=== PATIENT | male | born 1965 | race Caucasian/White ===

== ENCOUNTER 2022-07-23 05:43 | Day surgery (SDC) | payer OTHER, MEDICAID, SELFPAY ==
[2022-07-23 06:15] VITALS: BP 124/79; PULSE 62; RESP 18; TEMP 36.5; O2SAT 94
[2022-07-23] MEDS: Lactated Ringers 1,000 ML 80 ML IV (06:58)
--- NOTE | 2022-07-23 07:01 | W.ANESPRE ---
General Info Date of Service Date Performed: 07/23/22 Height: 5 ft 9 in Weight: 104.2 kg Body Mass Index (BMI): 33.9 Surgical Procedure: Operation Date: 07/23/22 07:40 Proposed Procedure Side Surgeon p Toe Amputation Left Cassie Perez DPM Meds Allergies and Home Medications Allergies Allergy/AdvReac Type Severity Reaction Status Date / Time adhesive tape Allergy Intermediate Verified 07/22/22 08:39 Home Medication Medication Instructions Recorded albuterol sulfate 90 mcg/actuation 1 puff inhalation QID PRN 06/29/22 aerosol inhaler dulaglutide 3 mg/0.5 mL 3 mg subcut QWEEK 06/29/22 subcutaneous pen injector (Trulicity) duloxetine 60 mg capsule,delayed 120 mg PO DAILY 06/29/22 release fluticasone 250 mcg-salmeterol 50 1 inh inhalation BID 06/29/22 mcg/dose blistr powdr for inhalation (Advair Diskus) fluticasone propionate 50 1 spray intranasal DAILY 06/29/22 mcg/actuation nasal spray,suspension insulin glargine 100 unit/mL (3 80 unit subcut DAILY 06/29/22 mL) subcutaneous pen (Lantus Solostar U-100 Insulin) losartan 50 mg tablet 50 mg PO DAILY 06/29/22 metformin 1,000 mg tablet 1,000 mg PO BID 06/29/22 multivitamin 1 tab PO DAILY 06/29/22 polyethylene glycol 3350 17 17 g PO DAILY 06/29/22 gram/dose oral powder tadalafil 20 mg tablet 20 mg PO .every 3 days PRN 06/29/22 pregabalin 75 mg capsule (Lyrica) See Rx Instructions PO BID 07/13/22 levofloxacin 750 mg tablet 750 mg PO Q24H osteomyelitis #14 07/14/22 tabs Current Visit Medications: Current Medications Generic Name Dose Route Start Last Admin Trade Name Freq PRN Reason Stop Dose Admin Ringer's Solution 1,000 mls @ 80 mls/hr 07/23/22 06:00 07/23/22 06:58 IV 07/23/22 23:59 80 mls/hr INFUSION BEATA Administration Cefazolin Sodium/Dextrose 2 gm in 50 mls @ 100 mls/hr 07/23/22 06:00 Ancef Duplex IVPB 07/23/22 23:59 PREOP BEATA IV Miscellaneous Supplies 1 each 07/23/22 06:00 Iv Access IV 07/23/22 23:59 DIRECTED BEATA Sodium Chloride 0 ml 07/23/22 06:00 Normal Saline Flush 10 Ml Syr IV 07/23/22 23:59 PRN PRN Sodium Chloride 0 ml 07/23/22 06:00 Normal Saline 10 Ml Vial IJ 07/23/22 23:59 DIRECTED PRN Sterile Water 0 ml 07/23/22 06:00 Water,Injection,Sterile 10 Ml Vial IJ 07/23/22 23:59 DIRECTED PRN PFSH Active Problems Active Problems: Problem Status Onset Code Hypertension I10 Type 2 diabetes mellitus E11.9 Obesity E66.9 Hyperlipidemia E78.5 Diabetic foot ulcer with osteomyelitis E11.621, E11.69, L97.509, M86.9 Bilateral bunions M21.611, M21.612 Closed fracture of metatarsal bone of right foot S92.301A 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 Ingrown toenail L60.0 Asthma J45.909 Diabetic neuropathy E11.40 Osteoarthritis of right knee M17.11 Surgical History Surgical History History of bilateral knee replacement 04/2016 Tobacco Smoking/Tobacco Use Status: Never Alcohol Alcohol Intake: current Alcohol intake frequency: a few times a week Substance Use Substance use: Occasionally Substance use type: marijuana Details: Per Pt states, I use marjuana capsules to sleep Vital Signs and Lab Results Vital Signs Most Recent Vital Signs in EMR: Most Recent Vital Signs Temp Pulse Resp BP Pulse Ox 36.5 C 62 18 124/79 94 07/23/22 06:15 07/23/22 06:15 07/23/22 06:15 07/23/22 06:15 07/23/22 06:15 Point of Care Results Point of Care Results: Finger Stick Blood Glucose 97 07/23/22 06:57 Lab Results Blood Type / Crossmatch: No Data to Display Complete Blood Count: No Data to Display Complete Metabolic Panel: No Data to Display Liver Function Panel: No Data to Display Coagulation Panel: No Data to Display Cardiac Panel: No Data to Display Arterial Blood Gas: No Data to Display Venous Blood Gas: No Data to Display Pancreas Panel: No Data to Display Thyroid Panel: No Data to Display Infectious Disease: No Data to Display Blood Cultures: No Data to Display Toxicology Panel: No Data to Display Anesthesia Assessment and Plan Anesthesia History Personal History: No History of Anesthesia Complications Family History: No Family History of Anesthesia Complications Exercise Tolerance Exercise Tolerance: Metabolic Equivalents>4 Pertinent Negatives Pertinent Negatives: No Symptoms of GERD and No Major Cardiovascular Symptoms or Complaints Cardiac & Pulmonary Exam Cardiac Exam: Normal S1/S2 Heart Sounds Pulmonary Exam: Wheezing Present Implantable Cardiac Device Does patient have a Pacemaker or an ICD?: No Airway Exam Known Difficult Airway: No Mallampati Class: 1 Mouth Opening: Normal (> 3cm) Thyromental Distance: Greater than 3 cm Facial Hair: Full Berkowitz Neck Range of Motion: Full ROM Neck Circumference: Normal Teeth Condition: Normal Dentition ASA Classification ASA Score: ASA 3 Emergency Case?: No NPO Status NPO Status: NPO Clears >2 hours, Solids >8 hours Anesthesia Plan Resuscitation Status: Full Code Anesthesia Technique: General Anesthesia Airway Planned: Natural Airway Monitors Used: Standard Monitors Preoperative Comments:: Plan for preoperative albuterol
[2022-07-23 07:19] VITALS: BMI 33.9
[2022-07-23 07:33] LABS: Abs Immature Grans 0.02 10^3/uL (0.0-0.06); Absolute Eosinophil Count 0.76 10^3/uL (0.0-0.7); Absolute Lymphocyte Count 1.37 10^3/uL (1.2-3.4); Absolute Monocyte Count 0.97 10^3/uL (0.1-0.8); Absolute Neutrophil Count 6.77 10^3/uL (1.2-6.7); Eosinophils % 7.6; HCT 36.1 % (40.0-50.0); HGB 12.4 g/dL (13.5-17.5); Immature Grans % 0.2; Lymphocytes % 13.7; MCH 29.7 pg (27.0-33.0); MCHC 34.3 % (32.0-36.0); MCV 86 fL (80-95); MPV 9.4 fL (8.0-11.0); Monocytes % 9.7; Neutrophils % 67.8; Platelet Count 338 10^3/uL (130-400); RBC 4.18 10^6/uL (4.36-5.78); RDW 11.9 % (11.8-14.1); RDW-SD 37.9 fL; WBC 9.99 10^3/uL (4.4-10.8)
[2022-07-23] MEDS: ceFAZolin 2 GM/50 ML BAG IVPB (07:33)
[2022-07-23] MEDS: Bupivacaine 0.5% Pres-Free 30 ML VIAL (07:45)
--- NOTE | 2022-07-23 08:03 | BONE_PTH ---
PATIENT: Ronald Das LOC: [facility] U#:[id number] AGE/SX: 57/M ROOM: RE07/23/[address]: Cassie Perez : 1965 BED: DIS: 07/23/2022 SPEC #: [id number] RECD: 07/23/22 11:44 STATUS: MACIEL REKari #: [id number] RITESH: 07/23/22 08:[address]: Cassie Perez DEPT: Surgical Specimen RECD BY: Deedee Costa ENTERED: 07/23/22 11:46 SP TYPE: Bone OTHR DR: JODY PENA Tissues: 1 - BONE BX/CURRETTE NOT PATH FRACTURE Procedures: GROSS AND MICRO LEVEL 4 DECALCIFICATION Comments: [id number]
[2022-07-23 08:52] VITALS: BP 126/77; PULSE 65; RESP 18; TEMP 36.1; O2SAT 98
--- NOTE | 2022-07-23 09:15 | ROE_ITS ---
Date of service: 07/23/22 Time of Service: 07:00 Operative Note Operative Note DATE OF PROCEDURE: 07/23/22 PRE-OP DIAGNOSIS: L hallux ulcer with osteomyelitis POST-OP DIAGNOSIS: same PROCEDURE: L hallucal amputation with disarticulation at the IPJ and resection / biopsy of the distal aspect of the proximal phalanx SURGEON: Cassie Perez ANESTHESIA TYPE: Local By Surgeon and MAC Refer to Anesthesia Record ESTIMATED BLOOD LOSS: 50 PATHOLOGY: other (L hallux proximal phalanx, assess proximal margin for osteomyelitis) COMPLICATIONS: Other Patient was transported to: PACU Patient's condition: stable Indications: L hallux osteomyelitis Findings: L hallucal distal phalanx entirely necrotic and non viable. The distal aspect of the proximal phalanx was also with questionable viability so the decision was made to resect the distal 50% of the proximal phalanx, with pathology to assess proximal margin for osteomyelitis Procedure Description: The patient was brought into the operating room and placed on the operating table in the supine position. Following general anesthesia, a local anesthetic block was performed about the first ray using 20 cc of 0.5% marcaine plain. The foot was scrupped, prepped and draped, an ankle tourniquet was placed on the ankle. The tourniquet was not utilized throughout the surgery with hemostasis achieved using surgical technique / bovie cauterization. Attention was directed to the L hallux where a fishmouth incision was made, deep to bone. The hallux was disarticulated at the IPJ. The distal phalanx was entirely necrotic and nonviable. The head of the remaining proximal phalanx was assessed and noted to be with questionable viability so a decision was made to resect the distal 30- 50% of the proximal phalanx using a sagital saw. The bone seemed to be viable, hard, and intact at the area of resection. The bone was sent for pathological evaluation as noted. The wound was irrigated with sterile normal saline, 3 L, and care was taken to achieve hemostasis with bovie cauterization. Necrotic nonviable tissue was excised (tendon and capsular structures). With removal of necrotic and nonviable tissue dorsally, a small puncture was made in the skin, so the decision was made to modify the dorsal skin incision site. Skin approximation was achieved, an improvement in bleeding edges noted (initially the dorsal flap was with slightly delayed perfusion), and with doing so, further bone resection was unnecessary. Skin edges were reappoximated and sutured using 3-0 vicryl for deep closure and 3-0 and 4-0 nylon for skin. It must be noted that bleeding edges were achieved throughout and appropriate skin closure was achieved. The wound was dressing with xeroform, DSD and an CHIP. He was transferred to the PACU with vital signs stable. Following a period of post- operative monitoring he will be discharged home with strict instructions to limit activity, elevate his foot, only ambulate to transfer to the bathroom only, elevate his foot above the level of his heart if he notes strikethrough on the dressing, and follow up with myself next week, sooner as needed. This was all reviewed with his partner Michelle, as well. All questions were answered.
[2022-07-23 09:30] VITALS: BP 121/67; PULSE 65; RESP 18; TEMP 36.4; O2SAT 96
--- NOTE | 2022-07-23 10:00 | W.ANESPOSTOP ---
Postoperative Evaluation Date, Time and Location Date Performed: 07/23/22 Time Performed: 09:15 Patient Location: Day Surgery Unit Vital Signs Most Recent Imported Vital Signs: Most Recent Vital Signs Temp Pulse Resp BP Pulse Ox 36.1 C L 65 18 126/77 98 07/23/22 08:52 07/23/22 08:52 07/23/22 08:52 07/23/22 08:52 07/23/22 08:52 Pain Score Most Recent Pain Score: Most Recent Pain Score Pain Level 0 07/23/22 08:52 Assessment Mental Status: Awake (Alert & Oriented to Patient Baseline) Airway and Respiratory Function: Patent airway with normal (patient baseline) respiratory exam Cardiovascular Function: Hemodynamically Stable Hydration Status: Adequately Hydrated Nausea & Vomiting: No Nausea or Vomiting Pain: Pt. Denies Any Pain Peripheral Nerve Block: Regional nerve block not resolved at time of post operative discharge (Per surgeon)
== END 2022-07-23 10:05 | disposition home or self-care (01) ==
PROVIDERS: PCP Family Medicine; Visit Provider Podiatrist Foot & Ankle Surgery
PROC: (CPT 28825; principal; 2022-07-23 07:30)
DX: E11.621 Type 2 diabetes mellitus with foot ulcer (principal); L97.524 Non-pressure chronic ulcer of other part of left foot with necrosis of bone; E11.42 Type 2 diabetes mellitus with diabetic polyneuropathy; E11.69 Type 2 diabetes mellitus with other specified complication; M86.9 Osteomyelitis, unspecified
CPT/HCPCS: 28825; 20240; 36415; 88305; 85025; 88304; 88311; J0690; J2250; J2405

== ENCOUNTER 2022-08-13 07:18 | Day surgery (SDC) | payer OTHER, MEDICAID, SELFPAY ==
[2022-08-13 08:04] VITALS: BP 125/85; PULSE 67; RESP 16; TEMP 36.6; O2SAT 96
[2022-08-13] MEDS: Lactated Ringers 1,000 ML 80 ML IV (08:37)
--- NOTE | 2022-08-13 09:14 | ANES.PREOP_ITS ---
General Info Date of Service Date Performed: 08/13/22 Height: 5 ft 9 in Weight: 101.9 kg Body Mass Index (BMI): 33.1 Surgical Procedure: Operation Date: 08/13/22 09:25 Proposed Procedure Side Surgeon p Toe Amputation w/Removal of All Infected Bone & Tissue, 1st Partial Ray Resection Left Cassie MedranoTIA ratliff Meds Allergies and Home Medications Allergies Allergy/AdvReac Type Severity Reaction Status Date / Time adhesive tape Allergy Intermediate Verified 08/13/22 07:47 Home Medication Medication Instructions Recorded albuterol sulfate 90 mcg/actuation 1 puff inhalation QID PRN 06/29/22 aerosol inhaler dulaglutide 3 mg/0.5 mL 3 mg subcut QWEEK 06/29/22 subcutaneous pen injector (Trulicity) duloxetine 60 mg capsule,delayed 120 mg PO DAILY 06/29/22 release fluticasone 250 mcg-salmeterol 50 1 inh inhalation BID 06/29/22 mcg/dose blistr powdr for inhalation (Advair Diskus) fluticasone propionate 50 1 spray intranasal DAILY 06/29/22 mcg/actuation nasal spray,suspension insulin glargine 100 unit/mL (3 80 unit subcut DAILY 06/29/22 mL) subcutaneous pen (Lantus Solostar U-100 Insulin) losartan 50 mg tablet 50 mg PO DAILY 06/29/22 metformin 1,000 mg tablet 1,000 mg PO BID 06/29/22 multivitamin 1 tab PO DAILY 06/29/22 polyethylene glycol 3350 17 17 g PO DAILY 06/29/22 gram/dose oral powder tadalafil 20 mg tablet 20 mg PO .every 3 days PRN 06/29/22 pregabalin 75 mg capsule (Lyrica) See Rx Instructions PO BID 07/13/22 levofloxacin 500 mg tablet 500 mg PO DAILY 10 days #10 tabs 08/09/22 Current Visit Medications: Current Medications Generic Name Dose Route Start Last Admin Trade Name Freq PRN Reason Stop Dose Admin Ringer's Solution 1,000 mls @ 80 mls/hr 08/13/22 06:00 08/13/22 08:37 IV 09/11/22 23:59 80 mls/hr INFUSION BEATA Administration Cefazolin Sodium/Dextrose 2 gm in 50 mls @ 100 mls/hr 08/13/22 06:00 Ancef Duplex IVPB 09/11/22 23:59 PREOP BEATA IV Miscellaneous Supplies 1 each 08/13/22 06:00 Iv Access IV 09/11/22 23:59 DIRECTED BEATA Sodium Chloride 0 ml 08/13/22 06:00 Normal Saline Flush 10 Ml Syr IV 09/11/22 23:59 PRN PRN Sodium Chloride 0 ml 08/13/22 06:00 Normal Saline 10 Ml Vial IJ 09/11/22 23:59 DIRECTED PRN Sterile Water 0 ml 08/13/22 06:00 Water,Injection,Sterile 10 Ml Vial IJ 09/11/22 23:59 DIRECTED PRN PFSH Active Problems Active Problems: Problem Status Onset Code Hypertension I10 Type 2 diabetes mellitus E11.9 Obesity E66.9 Hyperlipidemia E78.5 Diabetic foot ulcer with osteomyelitis E11.621, E11.69, L97.509, M86.9 Bilateral bunions M21.611, M21.612 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 Cassie Perez DPM Closed fracture of metatarsal bone of right foot Surgical History Surgical History History of bilateral knee replacement 04/2016 Tobacco Smoking/Tobacco Use Status: Never Alcohol Alcohol Intake: current Alcohol intake frequency: a few times a week Substance Use Substance use: Occasionally Substance use type: marijuana Vital Signs and Lab Results Vital Signs Most Recent Vital Signs in EMR: Most Recent Vital Signs Temp Pulse Resp BP Pulse Ox 36.6 C 67 16 125/85 96 08/13/22 08:04 08/13/22 08:04 08/13/22 08:04 08/13/22 08:04 08/13/22 08:04 Point of Care Results Point of Care Results: Finger Stick Blood Glucose 118 08/13/22 08:03 Lab Results Blood Type / Crossmatch: No Data to Display Complete Blood Count: White Blood Count 9.99 10^3/uL (4.4-10.8) 07/23/22 07:25 Red Blood Count 4.18 10^6/uL (4.36-5.78) L 07/23/22 07:25 Hemoglobin 12.4 g/dL (13.5-17.5) L 07/23/22 07:25 Hematocrit 36.1 % (40.0-50.0) L 07/23/22 07:25 Platelet Count 338 10^3/uL (130-400) 07/23/22 07:25 Complete Metabolic Panel: No Data to Display Liver Function Panel: No Data to Display Coagulation Panel: No Data to Display Cardiac Panel: No Data to Display Arterial Blood Gas: No Data to Display Venous Blood Gas: No Data to Display Pancreas Panel: No Data to Display Thyroid Panel: 2 No Data to Display Infectious Disease: No Data to Display Blood Cultures: No Data to Display Toxicology Panel: No Data to Display Anesthesia Assessment and Plan Anesthesia History Personal History: No History of Anesthesia Complications Family History: No Family History of Anesthesia Complications Exercise Tolerance Exercise Tolerance: Metabolic Equivalents>4 Cardiac & Pulmonary Exam Cardiac Exam: Normal S1/S2 Heart Sounds Pulmonary Exam: Clear Bilateral Breath Sounds Implantable Cardiac Device Does patient have a Pacemaker or an ICD?: No Airway Exam Known Difficult Airway: No Mallampati Class: 1 Mouth Opening: Normal (> 3cm) Thyromental Distance: Greater than 3 cm Neck Range of Motion: Full ROM Neck Circumference: Normal Teeth Condition: Normal Dentition ASA Classification ASA Score: ASA 3 Emergency Case?: No NPO Status NPO Status: NPO Clears >2 hours, Solids >8 hours Anesthesia Plan Resuscitation Status: Full Code Anesthesia Technique: General Anesthesia Airway Planned: Natural Airway Monitors Used: Standard Monitors
[2022-08-13 09:55] VITALS: BMI 33.1
[2022-08-13] MEDS: ceFAZolin 2 GM/50 ML BAG IVPB (10:26)
[2022-08-13] MEDS: Bupivacaine 0.5% Pres-Free 30 ML VIAL (10:50)
--- NOTE | 2022-08-13 10:57 | AMP_PTH ---
PATIENT: Ronald Das LOC: [facility] U#:[id number] AGE/SX: 57/M ROOM: RE08/13/[address]: Cassie Perez : 1965 BED: DIS: 08/13/2022 SPEC #: [id number] RECD: 08/13/22 13:07 STATUS: MACIEL REKari #: [id number] RITESH: 08/13/22 10:[address]: Cassie Perez DEPT: Surgical Specimen RECD BY: Deedee Costa ENTERED: 08/13/22 13:09 SP TYPE: Amputation OTHR DR: JODY PENA Tissues: 1 - AMPUTATION FINGERS/TOES(NOT TRAUMA) Procedures: GROSS AND MICRO LEVEL 3 DECALCIFICATION Comments: [id number]
[2022-08-13 11:40] VITALS: BP 116/64; PULSE 60; RESP 16; TEMP 36; O2SAT 95
--- NOTE | 2022-08-13 12:05 | W.PM.OP ---
Date of service: 08/13/22 Time of Service: 10:30 Operative Note Operative Note DATE OF PROCEDURE: 08/13/22 PRE-OP DIAGNOSIS: L hallux osteomyelitis PROCEDURE: L hallucal amputation with disarticulation at the 1st MPJ SURGEON: Cassie Perez ANESTHESIA TYPE: Local By Surgeon and MAC Refer to Anesthesia Record ESTIMATED BLOOD LOSS: 10 PATHOLOGY: other (L hallux remaining proximal phalanx, and bone L 1st metatarsal head sent for microbiological evaluation) COMPLICATIONS: None Patient was transported to: PACU Patient's condition: stable Procedure Description: The patient was brought to the operating room placed on the operating table in the supine position. Following induction with monitored anesthesia care, local anesthetic block was performed about the patient's left first ray utilizing 20 cc of 0.5% Marcaine plain. The foot was then scrubbed, prepped, draped using the usual aseptic manner. Pneumatic ankle tourniquet was placed about the patient's left ankle but not utilized with hemostasis being achieved throughout the course of the procedure with surgical technique. Attention was directed to the left hallux where a modified lying/T-type incision was utilized in attempt to debride all residual necrotic tissue at the residual hallux amputation site but also extended the incision proximally to allow for disarticulation at the first metatarsophalangeal joint and appropriate access to the first metatarsophalangeal joint. Incision was deepened to bone with immediate identification of necrotic nonviable grayish-brown tissue and what remains of the proximal phalanx. This was surgically excised and sent for pathological evaluation. Assessment of the first metatarsal head was then performed and noted to be not violated, intact, and appropriate coloration. For that reason the decision was made to disarticulate the hallux at the first metatarsal phalangeal joint. The wound was irrigated with sterile normal saline, 3 L, and all bleeders were cauterized as necessary. A rongeur was utilized to resect a portion of the dorsal lateral aspect of the patient's remaining first metatarsal head and this was sent for microbiological evaluation. The wound was reapproximated and coapted utilizing 3-0 Vicryl for deep tissue, 3-0 and 4-0 nylon for the skin using a combination of horizontal mattress, vertical mattress, retention sutures and simple sutures. The wound was dressed with Xeroform dry sterile dressing and well-padded Smooth wrap. He was transferred to the PACU with vital signs stable and vascular status intact all remaining digits of the left foot. He will be discharged home with instructions to limit activity, elevate his foot, keep his dressing dry, and return to clinic for follow-up evaluation with myself next week. An appointment has already been made.
[2022-08-13 12:14] VITALS: BP 125/75; PULSE 58; RESP 16; TEMP 36.4; O2SAT 98
--- NOTE | 2022-08-13 13:48 | W.ANESPOSTOP ---
Postoperative Evaluation Date, Time and Location Date Performed: 08/13/22 Time Performed: 12:20 Patient Location: Day Surgery Unit Vital Signs Most Recent Imported Vital Signs: Most Recent Vital Signs Temp Pulse Resp BP Pulse Ox 36.4 C L 58 L 16 125/75 98 08/13/22 12:14 08/13/22 12:14 08/13/22 12:14 08/13/22 12:14 08/13/22 12:14 Pain Score Most Recent Pain Score: Most Recent Pain Score Pain Level 0 08/13/22 12:14 Assessment Mental Status: Awake (Alert & Oriented to Patient Baseline) Airway and Respiratory Function: Patent airway with normal (patient baseline) respiratory exam Cardiovascular Function: Hemodynamically Stable Hydration Status: Adequately Hydrated Nausea & Vomiting: No Nausea or Vomiting Pain: Pt. Denies Any Pain Peripheral Nerve Block: Patient did not receive a nerve block
== END 2022-08-13 13:08 | disposition home or self-care (01) ==
PROVIDERS: PCP Family Medicine; Visit Provider Podiatrist Foot & Ankle Surgery
PROC: (CPT 28820; principal; 2022-08-13 09:15)
DX: E11.69 Type 2 diabetes mellitus with other specified complication (principal); M86.8X8 Other osteomyelitis, other site; Z79.4 Long term (current) use of insulin; E11.621 Type 2 diabetes mellitus with foot ulcer; L97.529 Non-pressure chronic ulcer of other part of left foot with unspecified severity
CPT/HCPCS: 28820; 87077; 88300; 87070; 87075; 87186; 87205; 88304; 88311; J0690; J2704

== ENCOUNTER 2022-09-16 01:40 | Outpatient (CLI) | payer OTHER, MEDICAID, SELFPAY ==
[2022-09-16 10:36] LABS: Abs Immature Grans 0.02 10^3/uL (0.0-0.06); Absolute Eosinophil Count 0.55 10^3/uL (0.0-0.7); Absolute Lymphocyte Count 1.97 10^3/uL (1.2-3.4); Absolute Monocyte Count 0.71 10^3/uL (0.1-0.8); Absolute Neutrophil Count 4.03 10^3/uL (1.2-6.7); Basophils % 1.4; ESR 10 mm/hr (0-20); Eosinophils % 7.5; HCT 37.2 % (40.0-50.0); HGB 12.4 g/dL (13.5-17.5); Immature Grans % 0.3; Lymphocytes % 26.7; MCH 28.8 pg (27.0-33.0); MCHC 33.3 % (32.0-36.0); MCV 87 fL (80-95); MPV 9.7 fL (8.0-11.0); Monocytes % 9.6; Neutrophils % 54.5; Platelet Count 264 10^3/uL (130-400); RDW-SD 40.4 fL; WBC 7.38 10^3/uL (4.4-10.8)
[2022-09-16 10:44] LABS: Anion Gap 6.3 mmol/L (3-11); BUN 9 mg/dL (7-18); CO2 28.7 mmol/L (21.0-32.0); CREATININE 0.9 mg/dL (0.70-1.30); Calcium 9.2 mg/dL (8.5-10.1); Chloride 102 mmol/L (98-107); Estimated GFR 100.24 (mL/min/1.73m2); Glucose 169 mg/dL (74-106); Potassium 3.5 mmol/L (3.5-5.1); Sodium 137 mmol/L (136-145)
[2022-09-16] MEDS: Gadoterate meglumine 20 ML VIAL IVP (11:29)
[2022-09-16] MEDS: Normal Saline Flush 10 ML SYR IJ (11:31)
--- NOTE | 2022-09-16 12:00 | DI.MRI_ITS ---
Exam(s) MR LOWER EXTREMITY LT WO/W EXAM: MR LOWER EXTREMITY LT WO/W CLINICAL HISTORY: L foot wound with drainage,s/p amputation,M86.9,L97.509 TECHNIQUE: Multiplanar multisequence MRI was performed. Both pre and post contrast sequences perfor med. Contrast injected was IV Dotarem 20 mL COMPARISON: MR MR FOOT RT W/WO CONTRAST from 06/25/2022 FINDINGS: There is marked soft tissue edema around the distal stump from the 1st toe amputation, the amputation being at the level of the metatarsophalangeal joint. Cortex appears intact but there is some signal abnormality and mild enhancement in the head and neck of the great toe metatarsal and subjacent sesa moids, but no pathognomonic confluent hypointense T1 signal (which is more pathognomonic for the pres ence of osteomyelitis). There appears to be a remnant fragment of the base of the proximal phalanx of the great toe. This me asures 1.8 cm wide by 0.7 cm proximal-distal. There is surrounding enhancement. Also of some concern is the presence of some bone edema in the adjacent head of the 2nd metatarsal an d proximal phalanx of the 2nd toe, as well as some intraosseous enhancement in this bone. IMPRESSION: 1. Great toe amputation at the metatarsophalangeal joint with some bone edema in the head and neck of the great toe metatarsal and subjacent sesamoids. Not possible to state osteomyelitis given that th ere is no confluent T1 hypointense intraosseous signal. However, recommend close follow-up as there is bone edema here. There also appears to be a remnant para-articular fragment of the base of the pr oximal phalanx which is hypointense on all sequences and does not enhance. Nevertheless, cannot excl ude the fact that this is remnant infected bone. 2. There is also some intraosseous signal abnormality/edema also evident in the adjacent proximal ph alanx of the 2nd toe and 2nd metatarsal head. 3. Recommend close follow-up here both serial plain films and repeat MRI after appropriate interval given the above findings. DATA REPOSITORY:
--- NOTE | 2022-09-16 13:14 | DI.VRAD_ITS ---
PROCEDURE INFORMATION: Exam: MR Left Lower Extremity Other Than Joint Without and With Contrast; Foot Exam date and time: 09/16/2022 10:53 AM Age: 57 years old Clinical indication: Other: S/P great toe amputation about 3 or 4 weeks ago patients sts; Prior surgery; Surgery date: <1 month TECHNIQUE: Imaging protocol: Magnetic resonance imaging of the left lower extremity without and with contrast. Exam focused on the foot. Contrast material: DOTAREM; Contrast volume: 20 ml; Contrast route: INTRAVENOUS (IV); COMPARISON: MR FOOT LT W/WO CONTRAST 06/23/2022 10:56 AM FINDINGS: Bones/joints: First toe amputation at the MTP joint. Reactive edema in the neck and head of the 1st metatarsal and the 1st metatarsosesamoid bones. Thickening of the flexor hallucis longus tendon which appears torn and retracted to the level of the mid shaft of the 1st metatarsal. LIGAMENTS: Lisfranc ligament: Unremarkable. No evidence of tear. TENDONS: Flexor tendons of foot: Unremarkable. No evidence of tear. Tibialis posterior tendon: Unremarkable as visualized. Peroneal tendons: Unremarkable as visualized. Extensor tendons of foot: Unremarkable. No evidence of tear. Tibialis anterior tendon: Unremarkable as visualized. Tarsal canal (Sinus tarsi): Unremarkable. Tarsal tunnel: Unremarkable. Soft tissues: Ulceration at the stump the resected 1st toe. Diffuse soft tissue edema. Soft tissue edema thickening about the head of the metatarsal. Plantar fascia: Unremarkable as visualized. IMPRESSION: 1. First toe amputation at the MTP joint without evidence of osteomyelitis in the distal stump 2. Distal skin ulceration and marked soft tissue edema about the stone 3. Tear and retraction of flexor hallucis longus tendon Dictated and Authenticated by: Olesya Weems MD. Ordering:FREDERIC Matthews MD
[2022-09-16 19:05] LABS: CRP, High Sensitivity 0.99 mg/L (See Note)
== END 2022-09-16 02:00 ==
LOC: DI 01:41
PROVIDERS: PCP Family Medicine; Visit Provider Podiatrist Foot & Ankle Surgery
DX: E11.621 Type 2 diabetes mellitus with foot ulcer (principal); L97.509 Non-pressure chronic ulcer of other part of unspecified foot with unspecified severity; Z89.412 Acquired absence of left great toe
CPT/HCPCS: 80048; 85652; 86141; 73720; 85025